=== PATIENT | male | born 2005 | race Caucasian/White ===

== ENCOUNTER 2024-03-21 22:05 | Emergency (ER) | payer OTHER ==
[~2024-03-21] VITALS: Ht 170.2 cm; Wt 76.4 kg
[2024-03-21 23:22] LABS: BASO % 0.5 % (0.0-1.0); EOS # 0.1 10^3/uL (0.0-0.5); EOS % 0.8 % (0.0-3.0); HEMATOCRIT 43.4 % (42.0-52.0); LYMPH # 0.8 10^3/uL (1.5-5.0); LYMPH % 10.6 % (24.0-44.0); MEAN CORPUSCULAR HGB CONC 34.6 g/dl (32.0-36.5); MEAN CORPUSCULAR VOLUME 83.9 fl (80.0-96.0); MONO # 0.7 10^3/uL (0.0-0.8); MONO % 8.8 % (2.0-8.0); NEUTROPHILS # 5.8 10^3/uL (1.5-8.5); NEUTROPHILS % 78.8 % (36.0-66.0); PLATELET COUNT, AUTOMATED 233 10^3/uL (150-450); RED BLOOD COUNT 5.17 10^6/uL (4.30-6.10); WHITE BLOOD COUNT 7.4 10^3/uL (4.0-10.0)
[2024-03-21] MEDS: ONDANSETRON 4MG 2ML VIAL IV ONE (23:30)
[2024-03-21] MEDS: ACETAMINOPHEN *IV* 1,000 MG in IV 1 EA IV ONE (23:30)
[2024-03-21] MEDS: NS 1,000 ML IV ONE (23:31)
[2024-03-21 23:42] LABS: LIPASE 33 U/L (12-53)
[2024-03-21 23:44] LABS: ALBUMIN 4.2 G/DL (3.2-5.2); ALKALINE PHOSPHATASE 80 U/L (46-116); ALT/SGPT 22 U/L (7.0-40); AST/SGOT 30 U/L (<34); BILIRUBIN,DIRECT 0.2 MG/DL (<0.4); BILIRUBIN,TOTAL 0.5 MG/DL (0.3-1.2); BLOOD UREA NITROGEN 13 MG/DL (9-23); CALCIUM LEVEL 9.3 MG/DL (8.5-10.1); CARBON DIOXIDE LEVEL 28 MMOL/L (20-31); CHLORIDE LEVEL 104 MMOL/L (98-107); CREATININE FOR GFR 1.17 MG/DL (0.70-1.30); GLUCOSE, FASTING 97 MG/DL (60-100); SODIUM LEVEL 137 MMOL/L (136-145); TOTAL PROTEIN 6.7 G/DL (5.7-8.2)
[2024-03-21] MEDS ORDERED: ISOVUE-370 76% 100ML VIAL As Ordered ONE (23:58)
[2024-03-22] MEDS: KETOROLAC 30 MG/ML 1ML VIAL IV ONE
[2024-03-22 00:10] LABS: CPK CREATINE PHOSPHOKINASE 1155 U/L (46-171)
[2024-03-22 00:15] VITALS: TEMP 100.6
[2024-03-22] MEDS: NS 1,000 ML IV ONE (00:41)
[2024-03-22 02:17] VITALS: BP 122/59
[2024-03-22 02:45] VITALS: O2SAT 96
== END 2024-03-22 03:00 | disposition home or self-care (01) ==
LOC: M ED 22:05
DX: M62.82 Rhabdomyolysis (principal); E86.0 Dehydration; R10.9 Unspecified abdominal pain; F17.290 Nicotine dependence, other tobacco product, uncomplicated
CPT/HCPCS: 71045; 74177; 80048; 80076; 81001; 82550; 83605; 83690; 85025; 87040; 87486; 87581; 87633; 87798; 96361; 96374; 96375; 99284; J0131; J1885; J2405; Q9967